=== PATIENT | female | born 1955 | race Caucasian/White ===

== ENCOUNTER 2017-10-11 16:15 | Inpatient (IN) | payer OTHER ==
[~2017-10-11] VITALS: Ht 157.5 cm; Wt 66.7 kg
[2017-10-11 17:34] LABS: HEMATOCRIT 37.5 % (36.0-46.0); HEMOGLOBIN 12.2 G/DL (11.9-15.5); MCH 31.9 PG (29.0-34.0); MCHC 32.5 G/DL (30.0-36.0); MCV 97.9 FL (83-99); PLATELET COUNT 188 K/uL (156-360); RBC DIS.WIDTH-CV 13.8 % (11.8-14.6); RED BLOOD COUNT 3.83 M/uL (3.80-5.20); WHITE BLOOD COUNT 7.6 K/uL (4.1-10.2)
[2017-10-11 17:44] LABS: ALBUMIN 3.7 g/dL (3.2-4.8); CHLORIDE 97 mEq/L (99-109); POTASSIUM 4.5 mEq/L (3.7-5.4); SODIUM 138 mEq/L (136-147)
[2017-10-11 17:45] LABS: PTT 28.8 SEC (25-37)
[2017-10-11 17:47] LABS: GLUCOSE 94 mg/dL (70-99); TOTAL PROTEIN 6.7 g/dL (6.4-8.3)
[2017-10-11 17:49] LABS: TOTAL BILIRUBIN 0.3 mg/dL (0.0-1.0)
[2017-10-11 17:50] LABS: ALKALINE PHOSPHATASE 82 IU/L (3-129); CREATININE 4.7 mg/dL (0.6-1.3); GFR ESTIMATE (CALCULATED) 10 mL/min/
[2017-10-11 17:51] LABS: UREA NITROGEN (BUN) 17 mg/dL (9-23)
[2017-10-11 17:52] LABS: AST (GOT) 19 IU/L (2-34)
[2017-10-11 17:53] LABS: ALT (GPT) 10 IU/L (3-49)
[2017-10-11 23:23] VITALS: BP 159/68
[2017-10-11 23:30] VITALS: BP 159/68
[2017-10-12 04:33] VITALS: BP 132/60
[2017-10-12 05:59] LABS: HEMATOCRIT 35.4 % (36.0-46.0); HEMOGLOBIN 11.1 G/DL (11.9-15.5); MCV 98.9 FL (83-99)
[2017-10-12 06:22] LABS: CHLORIDE 97 MEQ/L (99-109); CREATININE 5.6 MG/DL (0.6-1.3); GFR ESTIMATE (CALCULATED) 8 mL/min/; GLUCOSE 138 mg/dL (70-99); POTASSIUM 5.1 MEQ/L (3.7-5.4); SODIUM 137 MEQ/L (136-147); UREA NITROGEN (BUN) 22 mg/dL (9-23)
[2017-10-12 08:18] VITALS: BP 143/66
[2017-10-12 11:03] VITALS: BP 128/64
[2017-10-12 15:35] VITALS: BP 171/73
[2017-10-12 19:40] VITALS: BP 147/67
[2017-10-12 23:39] VITALS: BP 129/61
[2017-10-13 03:11] VITALS: BP 131/60
[2017-10-13 05:14] LABS: HEMATOCRIT 30.9 % (36.0-46.0); HEMOGLOBIN 9.8 G/DL (11.9-15.5); MCH 31.3 PG (29.0-34.0); MCHC 31.7 G/DL (30.0-36.0); MCV 98.7 FL (83-99); PLATELET COUNT 160 K/uL (156-360); RBC DIS.WIDTH-SD 50.4 % (39-53); RED BLOOD COUNT 3.13 M/uL (3.80-5.20)
[2017-10-13 05:46] LABS: CHLORIDE 94 MEQ/L (99-109); CREATININE 7.9 MG/DL (0.6-1.3); GFR ESTIMATE (CALCULATED) 5 mL/min/; GLUCOSE 81 mg/dL (70-99); POTASSIUM 4.5 MEQ/L (3.7-5.4); SODIUM 132 MEQ/L (136-147); UREA NITROGEN (BUN) 38 mg/dL (9-23)
[2017-10-13 07:57] VITALS: BP 133/63
[2017-10-13 15:44] VITALS: BP 171/68
[2017-10-13 19:52] VITALS: BP 140/66
[2017-10-13 23:51] VITALS: BP 146/66
[2017-10-14 03:51] VITALS: BP 143/65
[2017-10-14 07:06] LABS: HEMATOCRIT 31.7 % (36.0-46.0); HEMOGLOBIN 9.9 G/DL (11.9-15.5); MCH 31.2 PG (29.0-34.0); MCHC 31.2 G/DL (30.0-36.0); PLATELET COUNT 162 K/uL (156-360); RBC DIS.WIDTH-CV 13.7 % (11.8-14.6); RBC DIS.WIDTH-SD 50.1 % (39-53); RED BLOOD COUNT 3.17 M/uL (3.80-5.20)
[2017-10-14 08:09] VITALS: BP 144/65
[2017-10-14 12:25] VITALS: BP 145/67
[2017-10-14] MEDS ORDERED: ENDOCET 5-3251 EACH PO (12:48)
[2017-10-14] MEDS ORDERED: MIRALAX17 GM PO (12:48)
[2017-10-14] MEDS ORDERED: SENNA PLUS TAB1 EACH PO (12:48)
[2017-10-14] MEDS ORDERED: VITAMIN D-32000 UNI2 PO (12:48)
[2017-10-14 16:41] VITALS: BP 144/65
== END 2017-10-14 17:26 | disposition home health service (06) | DRG 492 ==
LOC: EME 16:15 → EDOF 20:16 → 3EAST 20:16 → ENRESERV 20:18 → CANRESERV 20:18 → ENRESERV 22:10 → 3EAST 23:19
PROVIDERS: Emergency Medicine; Internal Medicine; Orthopaedic Surgery Sports Medicine
PROC: 0QSG04Z Reposition Right Tibia with Internal Fixation Device, Open Approach (ICD-10-PCS; principal; 2017-10-11)
PROC: 0QSJXZZ Reposition Right Fibula, External Approach (ICD-10-PCS; principal; 2017-10-11)
PROC: 0QSJ04Z Reposition Right Fibula with Internal Fixation Device, Open Approach (ICD-10-PCS; principal; 2017-10-11)
PROC: 0QSGXZZ Reposition Right Tibia, External Approach (ICD-10-PCS; principal; 2017-10-11)
PROC: 5A1D70Z Performance of Urinary Filtration, Intermittent, Less than 6 Hours Per Day (ICD-10-PCS; 2017-10-13)
DX: S82.851A Displaced trimalleolar fracture of right lower leg, initial encounter for closed fracture (principal); W00.0XXA Fall on same level due to ice and snow, initial encounter; Y93.K1 Activity, walking an animal; I12.0 Hypertensive chronic kidney disease with stage 5 chronic kidney disease or end stage renal disease; N18.6 End stage renal disease; Z99.2 Dependence on renal dialysis; S81.812A Laceration without foreign body, left lower leg, initial encounter; L03.116 Cellulitis of left lower limb; W19.XXXA Unspecified fall, initial encounter; D62 Acute posthemorrhagic anemia; I25.10 Atherosclerotic heart disease of native coronary artery without angina pectoris; Z95.5 Presence of coronary angioplasty implant and graft; Z86.61 Personal history of infections of the central nervous system; Z82.49 Family history of ischemic heart disease and other diseases of the circulatory system; Z83.3 Family history of diabetes mellitus
CPT/HCPCS: 73600; 73610; 76000; 80048; 80053; 82306; 85014; 85018; 85027; 85610; 85730; 93005; 99281; 99285; C1713; J0690; J1100; J1644; J2270; J2710; J3010; S0020